=== PATIENT | female | born 1990 | race Caucasian/White ===

== ENCOUNTER 2019-03-12 00:25 | Emergency (ER) | payer MEDICAID, OTHER ==
[~2019-03-12] VITALS: Ht 177.8 cm; Wt 60.0 kg
[2019-03-12 00:29] VITALS: Ht 177.8 cm; Wt 60.0 kg
[2019-03-12] MEDS ORDERED: KETOROLAC 30 MG INJ IM STA (01:15)
[2019-03-12] MEDS ORDERED: ONDANSETRON (ODT) 4 MG TAB ODT STA (01:15)
[2019-03-12] MEDS ORDERED: ACETAMINOPHEN 500 MG TAB PO STA (01:57)
[2019-03-12] MEDS ORDERED: morphine 4 MG/ML VIAL IV STA (03:32)
[2019-03-12] MEDS ORDERED: ONDANSETRON 4 MG INJ IV STA (03:33)
[2019-03-12] MEDS ORDERED: CEFTRIAXONE 1 GM/50 ML (PMX) 50 ML IVPB ONE (04:00)
[2019-03-12] MEDS ORDERED: SOD CHLORIDE 0.9% 500 ML IV ONE (04:00)
[2019-03-12] MEDS ORDERED: ACET500C5 PO (04:23)
[2019-03-12] MEDS ORDERED: AMOX1TAB10 PO (04:26)
--- NOTE | 2019-03-12 05:02 | ERD ---
ER Documentation Chief Complaint Chief Complaint abdominal pain/diarrhea x 1 day HPI This is a 28yo F who presents to the ED with complaint of back pain x 1 day. Pt notes hx of kidney stones previously and states pain similar in presentation to previous episodes. Pt admits to nausea, but no vomiting. Pt rates her pain as a 9/10 for which she has not taken any medication at this time. Pt has a hx of methamphetamine abuse for which she last snorted "few days ago," as well as marijuana use, no hx of IVDA. Pt denies fevers, chills, SOB. ROS All systems reviewed and are negative except as per history of present illness. Medications Home Meds Active Scripts Amoxicillin/Potassium Clav (Amox-Clav 875-125 mg Tablet) 875-125 mg Tab, 1 TAB PO BID for 7 Days, #14 TAB Prov:LUCIE OZUNA PA-C 03/12/19 Acetaminophen* (Tylophen*) 500 Mg Capsule, 2 CAP PO Q8H PRN for PAIN AND OR ELEVATED TEMP, #60 CAP Prov:LUCIE OZUNA PA-C 03/12/19 Allergies Allergies: Coded Allergies: No Known Drug Allergies (Verified Allergy, Unknown, 03/12/19) PMhx/Soc Medical and Surgical Hx: pt denies Medical Hx, pt denies Surgical Hx Hx Alcohol Use: No Hx Substance Use: No Hx Tobacco Use: No Smoking Status: Never smoker FmHx Family History: No diabetes, No coronary disease, No other Physical Exam Vitals Vital Signs Date Temp Pulse Resp B/P (MAP) Pulse Ox O2 O2 Flow FiO2 Time Delivery Rate 03/12/19 97.8 72 17 127/69 98 Room Air 05:05 (88) 03/12/19 97.3 78 18 136/68 100 00:29 (90) Physical Exam GEN: Alert and coherent. In visible pain. HEAD: Normocephalic, atraumatic. EYES: EOMI. PERRL. No conjunctival injection. No scleral icterus. No Discharge ENT: Nasal passages patent. Moist mucous membranes. NECK: Supple. Full range of motion. Trachea midline. No lymphadenopathy. RESP: No tachypnea. Clear to auscultation bilaterally. No wheezing, rales or rhonchi. No accessory muscle use. CV: Regular rate and rhythm. No murmurs, rubs, or gallops. ABD: Soft, non-distended. No guarding. No rebound tenderness or rigidity. No masses. Positive bowel sounds in all four quadrants. No RLQ tenderness, no rebound tenderness, no mcburnys point tenderness. Positive tenderness to the Left flank. BACK: Full ROM. Positive Left CVA tenderness. EXT: No deformity. No clubbing, cyanosis or edema. Equal pulses x 4. SKIN: Warm and dry. No obvious rashes, erythema, or petechiae. NEURO: Alert and oriented x3. Appropriate speech, mood and affect. Face is symmetric. Speech is normal. CN II-XII intact. Moves all extremities equally. Ambulates with a strong, steady gait. Result Diagram: 03/12/19 0236 03/12/19 0236 Results 24 hrs Laboratory Tests Test 03/12/19 01:41 03/12/19 01:52 03/12/19 02:36 POC Beta HCG, Qualitative POSITIVE NEGATIVE White Blood Count 18.6 10^3/ul Red Blood Count 4.59 10^6/ul Hemoglobin 15.3 g/dl Hematocrit 44.3 % Mean Corpuscular Volume 96.5 fl Mean Corpuscular Hemoglobin 33.3 pg Mean Corpuscular 34.5 g/dl Hemoglobin Concent Red Cell Distribution Width 12.4 % Platelet Count 329 10^3/UL Mean Platelet Volume 8.5 fl Immature Granulocytes % 0.400 % Neutrophils % 84.5 % Lymphocytes % 8.7 % Monocytes % 5.9 % Eosinophils % 0.3 % Basophils % 0.2 % Nucleated Red Blood Cells % 0.0 /100WBC Immature Granulocytes # 0.070 10^3/ul Neutrophils # 15.7 10^3/ul Lymphocytes # 1.6 10^3/ul Monocytes # 1.1 10^3/ul Eosinophils # 0.1 10^3/ul Basophils # 0.0 10^3/ul Nucleated Red Blood Cells # 0.0 10^3/ul Prothrombin Time 12.3 Sec Prothrombin Time Ratio 1.0 INR International 0.90 Normalized Ratio Activated Partial Thromboplast 31.2 Sec Time Urine Color YELLOW Urine Clarity CLOUDY Urine pH 6.0 Urine Specific Bent 1.014 Urine Ketones 2+ mg/dL Urine Nitrite NEGATIVE mg/dL Urine Bilirubin NEGATIVE mg/dL Urine Urobilinogen NEGATIVE mg/dL Urine Leukocyte Esterase 2+ Patrick/ul Urine Microscopic RBC 156 /HPF Urine Microscopic WBC 28 /HPF Urine Squamous Epithelial Cells FEW /HPF Urine Calcium Oxalate Crystals MANY /HPF Urine Bacteria FEW /HPF Urine Mucus FEW /HPF Urine Hemoglobin 3+ mg/dL Urine Glucose NEGATIVE mg/dL Urine Total Protein 1+ mg/dl Sodium Level 142 mmol/L Potassium Level 3.4 mmol/L Chloride Level 104 mmol/L Carbon Dioxide Level 22 mmol/L Anion Gap 16 Blood Urea Nitrogen 14 mg/dl Creatinine 0.87 mg/dl Est Glomerular Filtrat > 60 mL/min Rate mL/min Glucose Level 81 mg/dl Calcium Level 9.6 mg/dl Total Bilirubin 0.9 mg/dl Direct Bilirubin 0.00 mg/dl Indirect Bilirubin 0.9 mg/dl Aspartate Amino Transf (AST/SGOT) 27 IU/L Alanine 21 IU/L Aminotransferase (ALT/SGPT) Alkaline Phosphatase 102 IU/L Total Protein 8.3 g/dl Albumin 4.9 g/dl Globulin 3.40 g/dl Albumin/Globulin Ratio 1.44 Lipase 117 U/L Beta HCG, Quantitative 49.7 mIU/ml Urine Opiates Screen Negative Urine Barbiturates Negative Urine Amphetamines Screen Positive Urine Benzodiazepines Screen Negative Urine Cocaine Screen Negative Urine Cannabinoids Positive Current Medications Medications Dose Sig/Kings Start Time Status Last (Trade) Ordered Route PRN Stop Time Admin Dose Reason Admin Ketorolac 30 mg ONCE STAT 03/12/19 DC Tromethamine IM 01:15 (Toradol) 03/12/19 01:59 Ondansetron 4 mg ONCE STAT 03/12/19 DC 03/12/19 HCl (Zofran ODT 01:15 02:05 Odt) 03/12/19 01:21 1,000 mg ONCE STAT 03/12/19 DC 03/12/19 Acetaminophen PO 01:57 02:05 (Tylenol 03/12/19 01:58 Tab) Morphine 4 mg ONCE STAT 03/12/19 DC Sulfate IV 03:32 (morphine) 03/12/19 03:33 Sodium 500 ml @ Q1H ONCE 03/12/19 DC 03/12/19 Chloride 500 mls/hr IV 04:00 04:00 03/12/19 04:59 Ondansetron 4 mg ONCE STAT 03/12/19 DC HCl (Zofran IV 03:33 Inj) 03/12/19 03:34 Ceftriaxone 50 ml @ ONCE ONCE 03/12/19 DC 03/12/19 Sodium 100 mls/hr IVPB 04:00 04:11 03/12/19 04:29 Procedures/MDM PROCEDURE: Renal US. FINDINGS: The kidneys are normal in size the right measuring 1.29 cm and the left measuring 10.8 cm maximal sagittal dimension. Renal parenchymal echogenicity normal bilaterally. In the left mid kidney is a non-obstructing 0.5 cm calculus with minimal left hydronephrosis. No left intra renal mass. No evidence of right renal calculi or mass. No right hydronephrosis. No perirenal fluid collections bilaterally. Contracted urinary bladder. IMPRESSION: 1. Normal sized kidneys without intra renal masses bilaterally. 2. 0.5 cm non-obstructing left mid renal calculus with minimal left hydroneph rosis. 3. No right hydronephrosis or calculus. PROCEDURE: ULTRASOUND OBSTETRICAL FINDINGS: The uterus is visualized and measures 8.2 x 3.7 x 4.9 cm. There is no sonograp hic evidence for an intrauterine gestation. The endometrial echo complex is mildly heterogeneous and measures 10.8 mm. There is no evidence for free fluid. The right ovary has a normal echotexture and measures 4.1 x 2.4 x 2.9 cm. The left ovary has a normal echotexture and measures 3.6 x 2.3 x 2.4 cm. There is flow identified within the ovaries bilaterally. No adnexal masses are noted. IMPRESSION: Heterogeneous endometrial echo complex without sonographic evidence for an intrauterine gestation. If the patient has a positive test, an ectopic cannot be excluded. Clinical correlation is necessary. MDM: 28yo F presents for evaluation of left sided back pain x 1 day. Physical exam findings with positive Left CVA tenderness and flank tenderness. Pt refused pain medicine other than tylenol while in ED. POC preg with positive result, and BetaHCG 49.7. Pt notes recent in January and states to not believe she is at this time. Pelvic US did not show an intrauterine gestation, but showed an echogenic mass, possible ectopic. Renal US positive for 0.5cm stone, and UA showed 3+leuks. Counseled pt regarding possible vs. ectopic. Pt states if she is she is not sure at this moment if she will keep or terminate and therefore it was discussed with pt to treat with antibiotics and pain medicine safe for should she be and want to keep the . Case discussed with [facility] who recommended pt f/u outpatient for possible D/C if positive HCG d/t retained tissue from previous . Pt marielos ated for Pyelo with Rocephin and will received Rx Augmentin and Tylenol for outpatient management. Upon final reassessment pt noted improvement in pain and symptoms. Pt referred to both [facility] and Community health clinics in the area. She is advised to return to ED in 48 hrs for repeat US and HCG and/or [facility] for D/C. Strict ED return precautions discussed. Extensive time spent counseling pt regarding follow-up, diagnosis, and medications. Pt expressed verbal understanding and agreement to treatment plan. All questions addressed and answered. Departure Diagnosis: Primary Impression: Pyelonephritis Additional Impressions: Kidney stones Weeks of gestation: unspecified Qualified Codes: Z34.90 - Encounter for supervision of normal , unspecified, unspecified trimester Condition: Stable Patient Instructions: , New Dx, Pyelonephritis, Female (Adult), Kidney Stone (Urine) Referrals: [facility] YOU HAVE RECEIVED A MEDICAL SCREENING EXAM AND THE RESULTS INDICATE THAT YOU DO NOT HAVE A CONDITION THAT REQUIRES URGENT TREATMENT IN THE EMERGENCY DEPARTMENT. FURTHER EVALUATION AND TREATMENT OF YOUR CONDITION CAN WAIT UNTIL YOU ARE SEEN IN YOUR DOCTORS OFFICE WITHIN THE NEXT 1-2 DAYS. IT IS YOUR RESPONSIBILITY TO MAKE AN APPOINTMENT FOR FOLOW-UP CARE. IF YOU HAVE A PRIMARY DOCTOR --you should call your primary doctor and schedule an appointment IF YOU DO NOT HAVE A PRIMARY DOCTOR YOU CAN CALL OUR PHYSICIAN REFERRAL HOTLINE AT IF YOU CAN NOT AFFORD TO SEE A PHYSICIAN YOU CAN CHOSE FROM THE FOLLOWING [facility] [address] [facility] [address] [facility] [facility] [address] [facility] [address] [facility] [address] [facility] [facility]. [address] [facility] [place] [address] [facility] [address] [place] [address] OFFICE FAX , [address] [place] [address] [address] [facility] [address] [place] [address] [address] WADE, [facility] [address], [place] [address] [address] [facility] [address] [place] [address] [facility] [address] [place] [address] [phone] [facility] [id number] - [address] BARTH [place] [address] [facility], [place] [address] DR MAZAR[address] [facility] [address] [facility]. [address], [place] [address] DR GUEVARA, [facility] [address] [place], [place] [id number] Additional Instructions: You were found to have a positive test today. It is recommended you f/u with header operator for possible D&C. LUCIE OZUNA PA-C Mar 12, 2019 05:02
[2019-03-12 05:05] VITALS: BP 127/69; PULSE 72; RESP 17
== END 2019-03-12 05:05 | disposition home or self-care (01) ==
LOC: FTE 00:25
DX: N12 Tubulo-interstitial nephritis, not specified as acute or chronic (principal); N20.0 Calculus of kidney; Z32.01 Encounter for pregnancy test, result positive
CPT/HCPCS: 36415; 76775; 76801; 76817; 80053; 80307; 81001; 81025; 83690; 84702; 85025; 85610; 85730; 96374; J0696; J7040; Z7502; Z7610